=== PATIENT | female | born 1945 | race Caucasian/White ===

== ENCOUNTER 2019-05-27 08:09 | Day surgery (SDC) | payer MEDICARE ==
[~2019-05-27] VITALS: Ht 163.8 cm; Wt 56.7 kg
[~2019-05-27 08:09] MED LIST: ACYC-114 PO; BUPIVACAINE/EPI 0.5% 1:200K ONE; CHOL100011 PO; MULT-658 PO; [UNRECOGNIZED DRUG - OTHER] PO
[2019-05-27] MEDS ORDERED: LACTATED RINGERS 1,000 ML IV SCH (08:41)
[2019-05-27] MEDS ORDERED: ONDANSETRON ODT 8 MG PO ONE (09:00)
[2019-05-27] MEDS ORDERED: GABAPENTIN 300 MG CAPSULE PO ONE (09:00)
[2019-05-27] MEDS ORDERED: ACETAMINOPHEN 500 MG TABLET PO ONE (09:00)
[2019-05-27] MEDS ORDERED: FENTANYL PF 100 MCG/2ML IV PRN (09:30)
[2019-05-27] MEDS ORDERED: OXYcodone 5 MG/5 ML ORAL.SOL UDC PO PRN (09:30)
[2019-05-27] MEDS ORDERED: HYDROmorphone 2 MG/ML, 1ML IVPush PRN (09:30)
[2019-05-27] MEDS ORDERED: LABETALOL 5MG/ML, 20ML IV PRN (09:30)
[2019-05-27] MEDS ORDERED: hydrALAzine 20 MG/ML, 1ML IV PRN (09:30)
[2019-05-27] MEDS ORDERED: PROMETHAZINE 25 MG/ML, 1ML IV PRN (09:30)
[2019-05-27] MEDS ORDERED: HALOPERIDOL 5 MG/ML IV PRN (09:30)
[2019-05-27] MEDS ORDERED: MEPERIDINE/PF 25MG/ML,1ML IVPush PRN (09:30)
[2019-05-27] MEDS ORDERED: FENTANYL PF 250 MCG/5ML ONE (09:31)
[2019-05-27] MEDS ORDERED: GLYCOPYRROLATE 0.2MG/1ML, 5ML ONE (10:53)
[2019-05-27] MEDS ORDERED: ROCURONIUM 10MG/ML,5ML ONE (10:53)
[2019-05-27] MEDS ORDERED: NEOSTIGMINE 1 MG/ML, 10ML ONE (10:53)
[2019-05-27] MEDS ORDERED: PROPOFOL 10 MG/ML, 20ML ONE (10:53)
[2019-05-27] MEDS ORDERED: SUCCINYLCHOLINE 20 MG/ML, 10ML ONE (10:53)
[2019-05-27] MEDS ORDERED: CEFAZOLIN 1,000 MG ONE (10:53)
[2019-05-27] MEDS ORDERED: ONDANSETRON 2MG/ML, 2ML ONE (10:53)
[2019-05-27] MEDS ORDERED: DEXAMETHASONE 4 MG/ML, 1ML ONE (10:53)
== END 2019-05-27 13:10 | disposition home or self-care (01) ==
LOC: OUT 08:09
PROVIDERS: ATTEND Surgery
DX: K43.6 Other and unspecified ventral hernia with obstruction, without gangrene (principal); Z90.710 Acquired absence of both cervix and uterus
CPT/HCPCS: 49572; J0690; J1100; J2405; J2704; J2710; J3010; J7120; Q0162; J0330